=== PATIENT | female | born 1950 | race Caucasian/White ===

== ENCOUNTER 2018-12-30 18:14 | Inpatient (IN) ==
--- NOTE | 2018-12-30 18:38 | Emergency Department Note ---
Altered Mental Status HPI - General Chief Complaint: Altered Mental Status Stated Complaint: Altered loc Time Seen by Provider: 12/30/18 18:32 Source: EMS Mode of arrival: EMS - History of Present Illness HPI Narrative: This pleasant 68-year-old female became poorly responsive for about an hour and a half today where she was not talking and seem to be sleeping but did not awaken with pinching, raised voice, raising her head, etc. This is quite unusual for her according to herself and the family. She had another episode yesterday of uncertain duration. She was sent to [facility] yesterday where she was there for 6 hours and was told she had fluid retention and CO2 retention. Was given an increased dose of diuretic of furosemide from 10-40 mg. She took it twice today with no particular changes. Blood pressure also described as being low but is not on any blood pressure medication. Patient currently is at [facility] for rehabilitation. She previously been seen at [facility] and diagnosed with fluid overload a nd CO2 retention. She was discharged with her oxygen at 3 L/min but was able to be decreased from 3 L/min at home down to even 1 or 1-1/2 L/min. Patient reports having hydrocodone available for when her pains are severe but she has not taken any in the last couple of days. REVIEW OF SYSTEMS: No fevers, chills, sweats. Denies chest pain. No cough. Has chronic shortness of breath. Some new wheezing in the last 1 week. No nausea or vomiting. Has had some new rashes that seem to be increasing and going up her legs and upper arms. Had some on the chest and abdomen earlier today. No anxiety. Has had some bouts of depression but not chronically or diagnosed previously. Is always thirsty, has been for a long time. Takes chronic prednisone, 40 mg (was 60 mg); has had [facility]. - Related Data Home Medications Medication Instructions Recorded Confirmed duloxetine 60 mg capsule,delayed 60 mg PO QDAY 12/18/16 03/03/18 release gabapentin 300 mg capsule 300 mg PO QHS cap 12/18/16 03/03/18 zolpidem 10 mg tablet 10 mg PO QHS PRN tab 12/18/16 03/03/18 Allergies Allergy/AdvReac Type Severity Reaction Status Date / Time codeine Allergy Severe Unknown Verified 12/30/18 18:15 tramadol [From Ultram] Allergy Severe Unknown Verified 12/30/18 18:15 Past Medical History - Past Medical History Medical history: Denies: cancer, COPD, DM, myocardial infarction, renal disease - Social History smoking status: Never smoker Alcohol use: Reports: Rarely (Holidays) Drug use: Reports: none. Denies: marijuana Physical Exam Limitations: no limitations General appearance: alert (After spoken to. Keeps her eyes closed quite a bit of the time.), in no apparent distress Head: atraumatic, normocephalic Eye: Present: EOMI Neck: Present: trachea midline. Absent: lymphadenopathy, thyromegaly Chest: Present: symmetric chest wall rise Respiratory: Present: normal lung sounds bilaterally, rales/crackles (Possible occasional mild crackles in both bases.). Absent: respiratory distress, wheezes, stridor, accessory muscle use, prolonged expiratory phase Abdominal: Present: soft. Absent: distention, tenderness, guarding, rebound, rigidity, organomegaly, mass Extremities: Present: pedal edema (Both lower extremities and feet are covered with C[place] wraps.), other (Rather dark purplish toes compatible with her ray nods history and familiar to her family members.). Absent: pretibial edema, calf ten derness Neurological: Present: alert, oriented X3 Psychiatric: Present: normal affect, normal mood Skin: Present: dry, other (Some eczematous skin scaly dryness with excoriations on the lower legs that run across them.) Description: Present: macular. Absent: tenderness, papular, blisters, petechial , purpuric, crusting, discharge, fluctuant, indurated Course Vital Signs Temperature 97.7 F 12/30/18 18:15 Pulse Rate 85 12/30/18 18:15 Respiratory Rate 20 12/30/18 18:15 Blood Pressure 115/83 12/30/18 18:15 Pulse Oximetry (%) 93 12/30/18 18:15 Temperature 97.7 F 12/30/18 18:15 Pulse Rate 85 12/30/18 18:15 Respiratory Rate 20 12/30/18 18:15 Blood Pressure 115/83 12/30/18 18:15 Pulse Oximetry (%) 93 12/30/18 18:15 Altered Mental Status - [facility] Narrative Medical decision making narrative: 6:39 PM - large lady with history of CO2 retention and fluid retention/CHF coming with altered level of consciousness or unarousability for a significant period of time today and repeat yesterday. We will do ABG and multiple labs. See labs with multiple abnormalities including an ABG with elevated pH at 7.5 to, elevated base excess of 9.7 and bicarbonate 33.5. PCO2 was normal at 41 with PO2 at 67. She had interesting mild elevation of her liver function test at 71 for the ALT. Yesterday it was slightly worse for both liver enzymes. Bilirubin is mildly elevated at 2.2. White count is mildly elevated at 15 and yesterday was 17. She has a rather severe microcytosis and mild anemia. Creatinine is still elevated at 1.6 similar to yesterday but this is new compared to a more remote 1 of 0.8 in early 2018. Her BNP was markedly elevated at close to 13,000, yesterday was 14,000. 9:15 PM - I spoke with Dr. Alonzo, hospitalist, and went over her multiple concerns and issues and diagnoses, abnormal labs, altered level of consciousness for a prolonged period today, etc. with conclusion for her to be kept in the hospital for monitoring, observation, repeat labs and follow-up to try to come to a better understanding and/or conclusion as to the underlying causes of her altered level of consciousness today. Dr. Alonzo kindly accepts this admission. However, will be adding a CT of the head, urine drug screen, alcohol blood level, ammonia level, and venous lactate to her workup. Records of a heart cath performed earlier this year, i.e., about 6 weeks ago at [facility] will be requested. Also a previous echocardiogram report from August done in [place]. Consider high likelihood of right heart failure with probable major pulmonary hypertension per discussion with Dr. Alonzo. - Medical Records Medical records reviewed: Yes I reviewed the patient's medical records. - Lab Data Lab results reviewed: Yes I reviewed the patient's lab results. Result diagrams: 12/30/18 18:57 12/30/18 18:57 Lab Results 12/30/18 12/30/18 12/30/18 Range/Units 18:57 18:57 18:57 WBC 15.7 H (4.5-11.0) K/mcL RBC 4.96 (4.00-5.20) M/mcL Hgb 11.3 L (12.0-15.0) g/dL Hct 37.3 (36.0-48.0) % MCV 75.3 L (80.0-100.0) fL MCH 22.7 L (26.0-34.0) pg MCHC 30.2 L (31.0-36.0) g/dL RDW 21.3 H (11.5-14.5) % Plt Count 205 (140-440) K/mcL MPV 10.7 H (7.4-10.4) fL Gran % 87.0 H (38.0-78.0) % Lymph % (Auto) 7.0 L (15.5-49.0) % Wilkin % (Auto) 6.0 (1.0-12.0) % Sodium 135 (133-145) mmol/L Potassium 4.5 (3.3-5.1) mmol/L Chloride 91 L (96-108) mmol/L Carbon Dioxide 33 H (22-30) mmol/L Anion Gap 11.0 (8-16) BUN 38 H (8-23) mg/dl Creatinine 1.6 H (0.6-1.1) mg/dl GFR Calculation 33 Glucose 91 (70-105) mg/dL Calcium 8.8 (8.6-10.4) mg/dl Magnesium 2.4 (1.6-2.5) mg/dL Total Bilirubin 2.2 H (0.0-1.0) mg/dL AST 29 (0-37) U/l ALT 71 H (0-40) U/l Alkaline Phosphatase 175 H (39-117) U/L Troponin T 0.02 (0-0.03) ng/ml NT-Pro-B Natriuret Pep (0-125) pg/ml Total Protein 6.4 (5.9-8.4) gm/dL Albumin 3.9 (3.2-5.2) gm/dL Globulin 2.5 (2.2-3.7) gm/dL Albumin/Globulin Ratio 1.6 (1.0-2.3) 12/30/18 Range/Units 18:58 WBC (4.5-11.0) K/mcL RBC (4.00-5.20) M/mcL Hgb (12.0-15.0) g/dL Hct (36.0-48.0) % MCV (80.0-100.0) fL MCH (26.0-34.0) pg MCHC (31.0-36.0) g/dL RDW (11.5-14.5) % Plt Count (140-440) K/mcL MPV (7.4-10.4) fL Gran % (38.0-78.0) % Lymph % (Auto) (15.5-49.0) % Wilkin % (Auto) (1.0-12.0) % Sodium (133-145) mmol/L Potassium (3.3-5.1) mmol/L Chloride (96-108) mmol/L Carbon Dioxide (22-30) mmol/L Anion Gap (8-16) BUN (8-23) mg/dl Creatinine (0.6-1.1) mg/dl GFR Calculation Glucose (70-105) mg/dL Calcium (8.6-10.4) mg/dl Magnesium (1.6-2.5) mg/dL Total Bilirubin (0.0-1.0) mg/dL AST (0-37) U/l ALT (0-40) U/l Alkaline Phosphatase (39-117) U/L Troponin T (0-0.03) ng/ml NT-Pro-B Natriuret Pep 27500.0 H (0-125) pg/ml Total Protein (5.9-8.4) gm/dL Albumin (3.2-5.2) gm/dL Globulin (2.2-3.7) gm/dL Albumin/Globulin Ratio (1.0-2.3) - Radiology Data Radiology results reviewed: Yes I reviewed the patient's radiology results. - EKG Data EKG results narrative: EKG evidence of left atrial enlargement. No acute findings. Old EKG had some LVH criteria. This EKG will be read by a analytics developer. Disposition Pt seen by SHOULDER JOINER/PA only: No Clinical Impression: Alkalosis, metabolic, Acquired hyperbilirubinemia, Elevated alanine aminotransferase (ALT) level Altered mental status, unspecified Qualifiers: Altered mental status type: transient alteration of awareness Qualified Code(s): R40.4 - Transient alteration of awareness Acute renal failure (ARF) Qualifiers: Acute renal failure type: unspecified Qualified Code(s): N17.9 - Acute kidney failure, unspecified Elevated WBC count Qualifiers: Leukocytosis type: unspecified Qualified Code(s): D72.829 - Elevated white blood cell count, unspecified Disposition: Xfer As Inpt ([facility]) Condition: Fair
[2018-12-30 19:43] LABS: Mean Cell Volume 75.3 fL (80.0-100.0); Mean Corpuscular HGB Conc 30.2 g/dL (31.0-36.0); Platelet Count 205 K/mcL (140-440); RBC 4.96 M/mcL (4.00-5.20); Red Cell Distribution Width 21.3 % (11.5-14.5)
[2018-12-30 20:04] LABS: ALT/SGPT 71 U/l (0-40); Albumin 3.9 gm/dL (3.2-5.2); Albumin/Globulin Ratio 1.6 (1.0-2.3); Alkaline Phosphatase 175 U/L (39-117); Blood Urea Nitrogen 38 mg/dl (8-23)
--- NOTE | 2018-12-30 21:29 | Internal Med History&Physical ---
Medical - H&P: HPI Patient information: Note initiated : 12/30/18 at 9:28 pm Service Date, if different from initiated Date: [] Patient: Lurdes Hernandes a 68 y/o F admitted on for Altered loc. Chief Complaint: [] Chief complaint: AMS History of present illness: Ms. Hernandes is a 68 year old F with a history of sleep apnea on home CPAP/morbid obesity/raynauds phenomena who was brought in from [facility] the second time in 24 hours to the ER with symptoms of increasing somnolence, deep rgy and fatigue. Patient was difficult to arouse as per staff. Over the last 24 hours patient has not been talking laying in the bed. She was evaluated At [facility] on 12/30 and was discharged after 6 hours of ER stay after workup is essentially unremarkable except for creatinine 1.6. 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 During today's visit patient was difficult to arouse.Initial workup was co nsistent with elevated white count at 15.7, microcytosis, creatinine 1.6. ABG 7.52/40 . Serum lactic acid/pneumonia/urine drug screen was ordered Hospitalist service was consulted for evaluation in light of acute kidney injury/elevated white count and acute mental status change. At the time of evaluation patient is very somnolent. Unable to provide a detailed history. Most of the history is obtained from review of medical records and from ER physician.. Patient has been at advanced living for the last month due to weakness and deconditioning. Review of systems 10 point review of system was attempted but could not be performed. 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) Elevated erythrocyte sedimentation rate (Chronic) Back pain (Chronic) Discoloration of skin of foot (Acute) Mild valvular heart disease (Chronic) Ankylosing spondylitis (Chronic) Raynaud's phenomena Restless leg syndrome (Chronic) GERD (gastroesophageal reflux disease) (Chronic) Osteoporosis (Chronic) Hypertension (Chronic) Hyperlipidemia (Chronic) Postmenopausal status (Chronic) Obstructive sleep apnea (Chronic) Surgical history: History of cholecystectomy (Chronic 1985) History of colonoscopy (Chronic 2007) History of esophagogastroduodenoscopy (EGD) (Chronic 2007) History of open reduction and internal fixation (ORIF) procedure (Chronic 2004) left foot History of rotator cuff surgery (Chronic) left in 2002, right in 2003 History of tonsillectomy (Chronic ~1955) Social history: smoking status: Never smoker alcohol intake frequency: does not drink substance use type: does not use Medical - H&P: Meds Home Medications Medication Instructions Recorded Confirmed Type duloxetine 60 mg capsule,delayed 60 mg PO QDAY 12/18/16 12/30/18 History release gabapentin 300 mg capsule 300 mg PO QHS cap 12/18/16 12/30/18 History zolpidem 10 mg tablet 10 mg PO QHS PRN tab 12/18/16 12/30/18 History Ascorbic Acid [Vitamin C] 250 mg PO ONCE 12/30/18 12/30/18 History Bumetanide 1 mg PO TID 12/30/18 12/30/18 History Cyclobenzaprine [Flexeril] 10 mg PO Q8HP PRN 12/30/18 12/30/18 History Diltiazem HCl [Diltiazem 24Hr ER] 180 mg PO QAM 12/30/18 12/30/18 History Furosemide [Lasix] 40 mg PO ONCE 12/30/18 12/30/18 History Omeprazole [PriLOSEC] 20 mg PO ONCE 12/30/18 12/30/18 History Pravastatin [Pravachol] 20 mg PO HS 12/30/18 12/30/18 History Sertraline [Zoloft] 50 mg PO HS 12/30/18 12/30/18 History predniSONE [Prednisone] 40 mg PO QAM 12/30/18 12/30/18 History Allergies Allergy/AdvReac Type Severity Reaction Status Date / Time codeine Allergy Severe Unknown Verified 12/30/18 18:15 tramadol [From Ultram] Allergy Severe Unknown Verified 12/30/18 18:15 Medical - H&P: Exam - Constitutional Vitals: Temp Pulse Resp BP Pulse Ox 97.7 F 85 20 115/83 93 12/30/18 18:15 12/30/18 18:15 12/30/18 18:15 12/30/18 18:15 12/30/18 18:15 General appearance: morbidly obese, no acute distress Exam: Very somnolent and fatigued Eye movements symmetrical Oral cavity dry No ear nose discharge Head normocephalic Neck lymphadenopathy S1-S2 regular rhythm, systolic murmur grade 2 Diminished breath sounds bases Abdomen soft Lower extremity bilateral pitting edema, compressive wraps Skin no suspicious lesion Psych confused and lethargic Neuro nonfocal moving all 4 extremities to pain stimulus Medical - H&P: Reslt - Labs CBC & Chem 7: 12/31/18 03:45 12/31/18 03:45 Labs: Short CBC 12/30/18 Range/Units 18:57 WBC 15.7 H (4.5-11.0) K/mcL Hgb 11.3 L (12.0-15.0) g/dL Hct 37.3 (36.0-48.0) % Plt Count 205 (140-440) K/mcL BMP 12/30/18 18:57 Sodium 135 Potassium 4.5 Chloride 91 L Carbon Dioxide 33 H BUN 38 H Creatinine 1.6 H Glucose 91 Calcium 8.8 Cardiac Enzymes 12/30/18 Range/Units 18:57 Troponin T 0.02 (0-0.03) ng/ml Liver Function 12/30/18 Range/Units 18:57 Total Bilirubin 2.2 H (0.0-1.0) mg/dL AST 29 (0-37) U/l ALT 71 H (0-40) U/l Alkaline Phosphatase 175 H (39-117) U/L Albumin 3.9 (3.2-5.2) gm/dL Medical - H&P: A/P (1) Altered mental status, unspecified Current visit: Yes Status: Acute * Acute change in mental status-rule out polypharmacy as the patient has been on cyclobenzaprine, duloxetine, gabapentin, sertraline, zolpidem. Rule out infectious etiology, check blood and urine cultures. Consider CT head. ABG no evidence of hypercapnia or hypoxia, ammonia normal. Normal biochemical profile including sodium and blood glucose. Admit to telemetry inpatient for continued workup * Acute renal failure-continue monitoring, avoid nephrotoxic medications * Elevated bilirubin-possible secondary to elevated right heart pressure/congestive hepatopathy. Hepatic ultrasound * Anasarca-continue gentle diuresis. Echocardiogram to evaluate right heart pressure * Lower extremity lymphedema/ulcers-wound care * History of sleep apnea continue CPAP * Anxiety disorder-restart medications at lower dose * Hyperlipidemia continue statin * GERD continue PPI * Neuropathy continue gabapentin * History of SVT status post ablation, currently in A. fib on diltiazem * Severe deconditioning continue rehab support- * DVT prophylaxis continue heparin * Full code Plan * Admit as inpatient, I anticipate a minimum of 2 midnight stay for evaluation of above * AMS workup * Monitor renal function * Aggressive rehab support/nutrition supplements * Home CPAP
[2018-12-30] MEDS ORDERED: ONDANSETRON 4 MG/2 ML VIAL IV PRN (22:40)
[2018-12-30] MEDS ORDERED: MAGNESIUM SULFATE 2 GM/50 ML BAG IV PRN (22:40)
[2018-12-30] MEDS ORDERED: ACETAMINOPHEN 325 MG TABLET PO PRN (22:40)
[2018-12-30] MEDS ORDERED: POTASSIUM CHLORIDE 20 MEQ PACKET PO PRN (22:40)
[2018-12-30] MEDS ORDERED: IPRATROPIUM/ALBUTEROL 3 ML AMPUL.NEB NEB PRN (22:40)
[2018-12-30] MEDS: 0.9 % SODIUM CHLORIDE 10 ML SYRINGE IV SCH (23:42)
[2018-12-31] MEDS ORDERED: THIAMINE 100 MG/ML VIAL ONE (00:10)
[2018-12-31 00:11] LABS: Ferritin 171.7 ng/ml (30-400)
[2018-12-31] MEDS ORDERED: THIAMINE 100 MG in 0.9 % SODIUM CHLORIDE 50 ML IV ONE (00:30)
[2018-12-31 05:20] LABS: Appearance,Urine CLEAR; Bacteria,Urine 0 /hpf (0); Bilirubin,Urine NEG (NEG); Color,Urine YELLOW; Glucose,Urine (UA) NEGATIVE (NEG); Leukocyte Esterase,Urine NEG /uL (NEG); Mucus,Urine FEW /hpf (0); Protein,Urine 30 mg/dL (NEG); Specific Gravity,Urine 1.013 (1.000-1.035); Urine Blood NEG mg/dL (<0.03); Urine Hyaline Cast 5 /lpf (0-2); Urine RBC 1 /hpf (0-1); Urine Squamous Epithelial Cell < 1 /hpf (0-4); Urine WBC 7 /hpf (0-4)
[2018-12-31 05:23] LABS: Amphetamine Screen,Urine NONE DETECTED (NONDETECTED); Benzodiazepines Screen,Urine NONE DETECTED (NONDETECTED); Cocaine Screen,Urine NONE DETECTED (NONDETECTED); Opiate Screen,Urine NONE DETECTED (NONDETECTED); Oxycodone, Urine Screen NONE DETECTED (NONDETECTED)
[2018-12-31 05:44] LABS: Mean Cell Volume 75.8 fL (80.0-100.0); Mean Corpuscular HGB Conc 30.6 g/dL (31.0-36.0); Platelet Count 186 K/mcL (140-440); RBC 4.66 M/mcL (4.00-5.20); Red Cell Distribution Width 21.6 % (11.5-14.5)
[2018-12-31 06:42] LABS: ALT/SGPT 61 U/l (0-40); Albumin 3.4 gm/dL (3.2-5.2); Albumin/Globulin Ratio 1.5 (1.0-2.3); Alkaline Phosphatase 155 U/L (39-117); Bilirubin,Direct 1.4 mg/dL (0.0-0.3); Blood Urea Nitrogen 39 mg/dl (8-23); Gamma Glutamyl Transpeptidase 221 U/L (5-36); Uric Acid 9.6 mg/dL (2.5-8.0)
[2018-12-31 07:14] LABS: Anisocytosis 2+ (NONE SEEN); Hypochromasia 1+ (NONE SEEN); Lymphocytes % 14 % (15-49); Monocytes % (Manual) 7 % (1-12); Platelet Estimate NORMAL (NORMAL); RBC Morphology ABNORMAL (NORMAL); Segmented Neutrophils % 78 % (38-78)
[2018-12-31] MEDS: 0.9 % SODIUM CHLORIDE 10 ML SYRINGE IV SCH ×6 (07:30→21:30)
--- NOTE | 2018-12-31 08:31 | XRay Report ---
HISTORY: Congestive heart failure, hypoxia and decreased level of consciousness FINDINGS: The heart is moderately enlarged. There is a chronic stable finding. Pulmonary vessels are mildly engorged. There is no pulmonary edema, pleural effusion or pulmonary infiltrate. The atelectasis and left-sided pleural effusion seen on 09/17/18 have resolved. The cardiomegaly remains stable. IMPRESSION: Stable cardiomegaly with borderline congestive heart failure Interpreted and Authenticated by: Fran Huddleston 12/31/18
[2018-12-31] MEDS: FUROSEMIDE 40 MG/4 ML VIAL IV SCH ×2 (08:40→16:33)
[2018-12-31] MEDS ORDERED: THIAMINE 100 MG TABLET PO SCH (09:00)
[2018-12-31] MEDS: MULTIVIT,THER IRON,CA,FA & MIN 1 TABLET PO SCH (09:11)
[2018-12-31] MEDS: HEPARIN 5,000 UNIT/ML VIAL SQ SCH ×2 (09:11→21:12)
[2018-12-31] MEDS: DOCUSATE SODIUM 100 MG CAPSULE PO SCH ×2 (09:11→21:13)
--- NOTE | 2018-12-31 09:48 | Internal Med Progress Note ---
Medical - PN: Subj Patient information: Note initiated : 12/31/18 at 9:46 am Service Date, if different from initiated Date: [] Patient: Lurdes Hernandes a 68 y/o F admitted on 12/30/18 for Altered loc. Chief Complaint: [] Interval history: Ms. Hernandes is a 68 year old F with a history of sleep apnea on home CPAP/morbid obesity/raynauds phenomena who was brought in from [facility] the second time in 24 hours to the ER with symptoms of increasing somnolence, lethargy and fatigue. Patient was difficult to arouse as per staff. Over the last 24 hours patient has not been talking laying in the bed. She was evaluated At [facility] on 12/30 and was discharged after 6 hours of ER stay after workup is essentially unremarkable except for creatinine 1.6. 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 During today's visit patient was difficult to arouse.Initial workup was consistent with elevated white count at 15.7, microcytosis, creatinine 1.6. ABG 7.52/41/67. Serum lactic acid/pneumonia/urine drug screen was ordered Hospitalist service was consulted for evaluation in light of acute kidney injury/elevated white count and acute mental status change. At the time of evaluation patient is very somnolent. Unable to provide a detailed history. Most of the history is obtained from review of medical records and from ER physician.. Patient has been at advanced living for the last month due to weakness and deconditioning. 12/31-patient doing a lot better this morning, sitting on chair. Did ambulate 8- 10 feet. On 2 L oxygen. Was able to provide a substantial history this morning. Denies chest pain, no telemetry events other than A. fib. Denies recent fever chills. Lower extremity compressive wraps - Constitutional Vitals: Vital Signs Temp Pulse Resp BP Pulse Ox 98.0 F 85 16 98/76 97 12/31/18 07:18 12/30/18 22:23 12/31/18 07:18 12/31/18 07:18 12/31/18 07:18 Period Temp Pulse Resp BP Sys/[place] Pulse Ox Last 24 Hr 97.7 F-98.5 F 85-85 16-22 98-119/56-83 93-100 Intake and Output 12/30/18 12/31/18 12/31/18 21:59 05:59 13:59 Intake Total 175 460 Output Total 126 0 Balance 49 460 Weight 254 lb 231 lb 8 oz Intake & Output: Intake & Output 12/30/18 12/31/18 12/31/18 21:59 05:59 13:59 Intake Total 175 460 Output Total 126 0 Balance 49 460 Weight 254 lb 231 lb 8 oz Intake: Oral 175 460 Output: Void Amount 125 0 # of times incontinent of urine 1 Other: Meal Breakfast Percent of Meal Consumed 100% Feeding Ability Independent # Voids 1 General appearance: no acute distress Exam: Lower extremity bilateral lymphedema/compressive wrap Alert oriented Nonlabored breathing Ejection systolic murmur grade 2 A. fib on telemetry Medical - PN: Obj Da - Labs CBC & Chem 7: 12/31/18 03:45 12/31/18 03:45 Labs: Abnormal Lab Results 12/31/18 12/31/18 12/31/18 04:30 03:45 03:45 WBC 15.6 H Hgb 10.8 L Hct 35.3 L MCV 75.8 L MCH 23.2 L MCHC 30.6 L RDW 21.6 H MPV 10.5 H Gran % Lymph % (Auto) Lymphocytes % 14 L Nucleated RBCs 1 H Polychromasia Occ A Hypochromasia 1+ A Anisocytosis 2+ A Microcytosis 1+ A VBG Lactic Acid Chloride 91 L Carbon Dioxide BUN 39 H Creatinine 1.6 H Uric Acid 9.6 H Calcium 8.3 L Total Bilirubin 2.4 H Direct Bilirubin 1.4 H GGT 221 H ALT 61 H Alkaline Phosphatase 155 H Lactate Dehydrogenase 713 H C-Reactive Protein NT-Pro-B Natriuret Pep Total Protein 5.6 L Urine Protein 30 A Urine Urobilinogen 4.0 A Urine WBC 7 H Hyaline Casts 5 H 12/30/18 12/30/18 12/30/18 22:55 21:48 18:58 WBC Hgb Hct MCV MCH MCHC RDW MPV Gran % Lymph % (Auto) Lymphocytes % Nucleated RBCs Polychromasia Hypochromasia Anisocytosis Microcytosis VBG Lactic Acid 2.3 H Chloride Carbon Dioxide BUN Creatinine Uric Acid Calcium Total Bilirubin Direct Bilirubin GGT ALT Alkaline Phosphatase Lactate Dehydrogenase C-Reactive Protein 3.0 H NT-Pro-B Natriuret Pep 78908.0 H Total Protein Urine Protein Urine Urobilinogen Urine WBC Hyaline Casts 12/30/18 12/30/18 18:57 18:57 WBC 15.7 H Hgb 11.3 L Hct MCV 75.3 L MCH 22.7 L MCHC 30.2 L RDW 21.3 H MPV 10.7 H Gran % 87.0 H Lymph % (Auto) 7.0 L Lymphocytes % Nucleated RBCs Polychromasia Hypochromasia Anisocytosis Microcytosis VBG Lactic Acid Chloride 91 L Carbon Dioxide 33 H BUN 38 H Creatinine 1.6 H Uric Acid Calcium Total Bilirubin 2.2 H Direct Bilirubin GGT ALT 71 H Alkaline Phosphatase 175 H Lactate Dehydrogenase C-Reactive Protein NT-Pro-B Natriuret Pep Total Protein Urine Protein Urine Urobilinogen Urine WBC Hyaline Casts Meds: Medications Acetaminophen (Tylenol) 650 mg PO Q4-6HP PRN PRN Reason: PAIN/FEVER > 101 Albuterol/Ipratropium (Duoneb) 3 ml NEB Q4HP PRN PRN Reason: Shortness Of Breath Docusate Sodium (Colace) 100 mg PO BID [facility] Last Admin: 12/31/18 09:11 Dose: 100 mg Documented by: Furosemide (Lasix) 20 mg IV BIDD [facility] Last Admin: 12/31/18 08:40 Dose: 20 mg Documented by: Heparin Sodium (Porcine) (Heparin) 5,000 unit SQ Q12 [facility] Last Admin: 12/31/18 09:11 Dose: 5,000 unit Documented by: Magnesium Sulfate (Magnesium Sulfate) 2 gm in 50 mls @ 50 mls/hr IV UD PRN PRN Reason: MG = or < 1.7 Thiamine HCl 100 mg/ Sodium (Chloride) 51 mls @ 50 mls/hr IV DAILY [facility] Stop: 01/01/19 10:02 Iron Carb/Multivit/[place]/Folic Acid (Multivitamin W/Minerals) 1 tab PO DAILY [facility] Last Admin: 12/31/18 09:11 Dose: 1 tab Documented by: Nystatin (Nystatin) 500,000 units SSP BID [facility] Ondansetron HCl (Zofran) 4 mg IV Q4-6HP PRN PRN Reason: Nausea And Vomiting Potassium Chloride (Klor-Con) 40 meq PO DAILYP PRN PRN Reason: K+ < 3.5 Senna/Docusate Sodium (Senna Plus Tablet) 1 tab PO HS RADHA Sodium Chloride (Saline Flush) 10 ml IV Q8 [facility] Last Admin: 12/31/18 08:41 Dose: 10 ml Documented by: Medical - PN: A/P - Time Spent With Patient Total time spent is greater than 50% in coordination of care (as documented) at patient's floor/unit and/or counseling patient: 25 - 35 minutes (1) Altered mental status, unspecified Status: Acute Assessment and plan: * Acute change in mental status-clinically improved since admission. Likely secondary to polypharmacy including antidepressant/sedatives/opioids use. No evidence of infectious etiology, cultures negative so far. Normal ABG/ammonia/lactate/drug screen/biochemical profile including sodium and blood glucose. * Suspect acute on chronic renal failure-continue monitoring, avoid nephrotoxic medications * Elevated bilirubin-possible secondary to elevated right heart pressure/congestive hepatopathy. Hepatic ultrasound * Anasarca- gentle diuresis. Echocardiogram to evaluate right heart pressure * Lower extremity lymphedema/ulcers-wound care * History of sleep apnea continue CPAP * Anxiety disorder-restart medications at lower dose * Hyperlipidemia continue statin * GERD continue PPI * Neuropathy continue gabapentin * History of SVT status post ablation, currently in A. fib on diltiazem * Severe deconditioning continue rehab support- * DVT prophylaxis continue heparin * Full code Plan * Continue wound care per job training specialist * Continue monitoring renal function * PT OT/nutrition support * Home CPAP Current Visit: Yes Medical - PN: Qual - VTE Deep Vein Thrombosis/Pulmonary Embolism Present on Admission: No
[2018-12-31] MEDS: NYSTATIN 500,000 UNITS/5 ML ORAL.SUSP SSP SCH ×2 (10:00→21:12)
[2018-12-31] MEDS: oxyCODONE HCL 5 MG TABLET PO PRN (14:52)
[2018-12-31] MEDS: THIAMINE 100 MG in 0.9 % SODIUM CHLORIDE 50 ML IV SCH (14:53)
[2018-12-31] MEDS: SENNOSIDES/DOCUSATE SODIUM 1 TAB TABLET PO SCH (21:12)
[2018-12-31] MEDS: POTASSIUM CHLORIDE 20 MEQ TABLET PO SCH (21:13)
[2019-01-01] MEDS: oxyCODONE HCL 5 MG TABLET PO PRN (04:06)
[2019-01-01 05:19] LABS: Mean Corpuscular HGB Conc 29.7 g/dL (31.0-36.0); Platelet Count 176 K/mcL (140-440); RBC 4.59 M/mcL (4.00-5.20); Red Cell Distribution Width 21.8 % (11.5-14.5)
[2019-01-01 05:45] LABS: ALT/SGPT 57 U/l (0-40); Albumin 3.4 gm/dL (3.2-5.2); Albumin/Globulin Ratio 1.4 (1.0-2.3); Alkaline Phosphatase 163 U/L (39-117); Bilirubin,Direct 1.2 mg/dL (0.0-0.3); Blood Urea Nitrogen 35 mg/dl (8-23); Gamma Glutamyl Transpeptidase 221 U/L (5-36); Uric Acid 8.6 mg/dL (2.5-8.0)
[2019-01-01] MEDS: 0.9 % SODIUM CHLORIDE 10 ML SYRINGE IV SCH ×4 (05:49→21:42)
[2019-01-01 06:52] LABS: Anisocytosis 2+ (NONE SEEN); Hypochromasia 1+ (NONE SEEN); Lymphocytes % 26 % (15-49); Monocytes % (Manual) 2 % (1-12); Platelet Estimate NORMAL (NORMAL); RBC Morphology ABNORM (NORMAL); Segmented Neutrophils % 72 % (38-78)
[2019-01-01] MEDS: OMEPRAZOLE 20 MG CAPSULE PO SCH (08:03)
[2019-01-01] MEDS: predniSONE 20 MG TABLET PO SCH (08:04)
[2019-01-01] MEDS: DOCUSATE SODIUM 100 MG CAPSULE PO SCH ×2 (08:42→21:42)
[2019-01-01] MEDS: DILTIAZEM 180 MG CAP.XL.24H PO SCH (08:42)
[2019-01-01] MEDS: BUMETANIDE 1 MG TABLET PO SCH ×2 (08:42→18:02)
[2019-01-01] MEDS: MULTIVIT,THER IRON,CA,FA & MIN 1 TABLET PO SCH (08:42)
[2019-01-01] MEDS: HEPARIN 5,000 UNIT/ML VIAL SQ SCH ×2 (08:43→21:42)
[2019-01-01] MEDS: POTASSIUM CHLORIDE 20 MEQ TABLET PO SCH ×3 (08:43→21:42)
[2019-01-01] MEDS: DULoxetine 30 MG CAPSULE PO SCH (08:43)
[2019-01-01] MEDS: SPIRONOLACTONE 25 MG TABLET PO SCH (08:43)
[2019-01-01] MEDS: NYSTATIN 500,000 UNITS/5 ML ORAL.SUSP SSP SCH ×2 (08:44→21:43)
--- NOTE | 2019-01-01 09:00 | XRay Report ---
HISTORY: Congestive heart failure FINDINGS: The heart is moderately enlarged and has increased in size since 12/30/18. Similar size heart was seen on 09/17/18. At that time there was a left-sided pleural effusion and atelectasis in the left lung. There is mild prominence of the pulmonary vessels. No pulmonary edema is present. There is also no pneumonia, atelectasis or pleural effusion. IMPRESSION: Worsening cardiomegaly with borderline congestive heart failure Interpreted and Authenticated by: Fran Huddleston 01/01/19
[2019-01-01] MEDS: ACETAMINOPHEN 650 MG/65 ML BOTTLE IV PRN (09:50)
[2019-01-01] MEDS: THIAMINE 100 MG in 0.9 % SODIUM CHLORIDE 50 ML IV SCH (10:00)
--- NOTE | 2019-01-01 10:09 | Internal Med Progress Note ---
Medical - PN: Subj Patient information: Note initiated : 01/01/19 at 10:04 am Service Date, if different from initiated Date: [] Patient: Lurdes Hernandes a 68 y/o F admitted on 12/30/18 for Altered loc. Chief Complaint: [] Interval history: Ms. Hernandes is a 68 year old F with a history of sleep apnea on home CPAP/morbid obesity/raynauds phenomena who was brought in from [facility] the second time in 24 hours to the ER with symptoms of increasing somnolence, lethargy and fatigue. Patient was difficult to arouse as per staff. Over the last 24 hours patient has not been talking laying in the bed. She was evaluated At [facility] on 12/30 and was discharged after 6 hours of ER stay after workup is essentially unremarkable except for creatinine 1.6. 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 During today's visit patient was difficult to arouse.Initial workup was consistent with elevated white count at 15.7, microcytosis, creatinine 1.6. ABG 7.52/41/67. Serum lactic acid/pneumonia/urine drug screen was ordered Hospitalist service was consulted for evaluation in light of acute kidney injury/elevated white count and acute mental status change. At the time of evaluation patient is very somnolent. Unable to provide a detailed history. Most of the history is obtained from review of medical records and from ER physician.. Patient has been at advanced living for the last month due to weakness and deconditioning. 12/31-patient doing a lot better this morning, sitting on chair. Did ambulate 8- 10 feet. On 2 L oxygen. Was able to provide a substantial history this morning. Denies chest pain, no telemetry events other than A. fib. Denies recent fever chills. Lower extremity compressive wraps 01/01-patient doing remarkably better. Daughter at bedside. Awake alert and per daughter patient is now her normal self at baseline. No overnight events including fever chills or mental status Ainge or confusion. Was able to ambulate with assistance. Continue rehab support and possible discharge in 24 hours. Family very appreciative of care - Constitutional Vitals: Vital Signs Temp Pulse Resp BP Pulse Ox 98.0 F 85 20 95/60 96 01/01/19 04:28 02/08/19 22:23 01/01/19 04:28 01/01/19 04:28 01/01/19 04:28 Period Temp Pulse Resp BP Sys/Santana Pulse Ox Last 24 Hr 97.9 F-98.5 F 16-20 94-120/60-74 95-98 Intake and Output 12/31/18 01/01/19 01/01/19 21:59 05:59 13:59 Intake Total 411 120 Output Total 250 550 250 Balance 161 -550 -130 Weight 231 lb Intake & Output: Intake & Output 12/31/18 01/01/19 01/01/19 21:59 05:59 13:59 Intake Total 411 120 Output Total 250 550 250 Balance 161 -550 -130 Weight 231 lb Intake: IV 51 Vitamin B1 100 mg In Sodium 51 Chloride 0.9% 50 ml @ 50 mls/hr IV DAILY [facility] Rx#:[id number] Oral 360 120 Output: Void Amount 250 550 250 Other: Meal Breakfast Percent of Meal Consumed 100% Feeding Ability Independent Urine Color Light Hermila # Voids 1 300 1 General appearance: cooperative, no acute distress Exam: Alert oriented No labored breathing Nondistended abdomen No anxiety Medical - PN: Obj Da - Labs CBC & Chem 7: 01/01/19 03:55 01/01/19 03:55 Labs: Abnormal Lab Results 01/01/19 01/01/19 12/31/18 03:55 03:55 04:30 WBC 11.3 H Hgb 10.4 L Hct 34.9 L MCV 76.0 L MCH 22.6 L MCHC 29.7 L RDW 21.8 H MPV Gran % Lymph % (Auto) Lymphocytes % Nucleated RBCs 2 H RBC Morphology Abnorm A Polychromasia 1+ A Hypochromasia 1+ A Anisocytosis 2+ A Microcytosis 1+ A VBG Lactic Acid Chloride 91 L Carbon Dioxide 35 H BUN 35 H Creatinine 1.4 H Glucose 118 H Uric Acid 8.6 H Calcium 8.4 L Total Bilirubin 2.3 H Direct Bilirubin 1.2 H GGT 221 H ALT 57 H Alkaline Phosphatase 163 H Lactate Dehydrogenase 644 H C-Reactive Protein NT-Pro-B Natriuret Pep Total Protein 5.8 L Urine Protein 30 A Urine Urobilinogen 4.0 A Urine WBC 7 H Hyaline Casts 5 H 12/31/18 12/31/18 12/30/18 03:45 03:45 22:55 WBC 15.6 H Hgb 10.8 L Hct 35.3 L MCV 75.8 L MCH 23.2 L MCHC 30.6 L RDW 21.6 H MPV 10.5 H Gran % Lymph % (Auto) Lymphocytes % 14 L Nucleated RBCs 1 H RBC Morphology Polychromasia Occ A Hypochromasia 1+ A Anisocytosis 2+ A Microcytosis 1+ A VBG Lactic Acid Chloride 91 L Carbon Dioxide BUN 39 H Creatinine 1.6 H Glucose Uric Acid 9.6 H Calcium 8.3 L Total Bilirubin 2.4 H Direct Bilirubin 1.4 H GGT 221 H ALT 61 H Alkaline Phosphatase 155 H Lactate Dehydrogenase 713 H C-Reactive Protein 3.0 H NT-Pro-B Natriuret Pep Total Protein 5.6 L Urine Protein Urine Urobilinogen Urine WBC Hyaline Casts 12/30/18 12/30/18 12/30/18 21:48 18:58 18:57 WBC Hgb Hct MCV MCH MCHC RDW MPV Gran % Lymph % (Auto) Lymphocytes % Nucleated RBCs RBC Morphology Polychromasia Hypochromasia Anisocytosis Microcytosis VBG Lactic Acid 2.3 H Chloride 91 L Carbon Dioxide 33 H BUN 38 H Creatinine 1.6 H Glucose Uric Acid Calcium Total Bilirubin 2.2 H Direct Bilirubin GGT ALT 71 H Alkaline Phosphatase 175 H Lactate Dehydrogenase C-Reactive Protein NT-Pro-B Natriuret Pep 52805.0 H Total Protein Urine Protein Urine Urobilinogen Urine WBC Hyaline Casts 12/30/18 18:57 WBC 15.7 H Hgb 11.3 L Hct MCV 75.3 L MCH 22.7 L MCHC 30.2 L RDW 21.3 H MPV 10.7 H Gran % 87.0 H Lymph % (Auto) 7.0 L Lymphocytes % Nucleated RBCs RBC Morphology Polychromasia Hypochromasia Anisocytosis Microcytosis VBG Lactic Acid Chloride Carbon Dioxide BUN Creatinine Glucose Uric Acid Calcium Total Bilirubin Direct Bilirubin GGT ALT Alkaline Phosphatase Lactate Dehydrogenase C-Reactive Protein NT-Pro-B Natriuret Pep Total Protein Urine Protein Urine Urobilinogen Urine WBC Hyaline Casts Meds: Medications Acetaminophen (Tylenol) 650 mg PO Q4-6HP PRN PRN Reason: PAIN/FEVER > 101 Last Admin: 12/31/18 13:40 Dose: 650 mg Documented by: Albuterol/Ipratropium (Duoneb) 3 ml NEB Q4HP PRN PRN Reason: Shortness Of Breath Bumetanide (Bumex) 2 mg PO BIDD [facility] Last Admin: 01/01/19 08:42 Dose: 2 mg Documented by: Diltiazem HCl (Cardizem Cd) 180 mg PO DAILY [facility] Last Admin: 01/01/19 08:42 Dose: 180 mg Documented by: Docusate Sodium (Colace) 100 mg PO BID [facility] Last Admin: 01/01/19 08:42 Dose: 100 mg Documented by: Duloxetine HCl (Cymbalta) 60 mg PO DAILY [facility] Last Admin: 01/01/19 08:43 Dose: 60 mg Documented by: Heparin Sodium (Porcine) (Heparin) 5,000 unit SQ Q12 [facility] Last Admin: 01/01/19 08:43 Dose: 5,000 unit Documented by: Magnesium Sulfate (Magnesium Sulfate) 2 gm in 50 mls @ 50 mls/hr IV UD PRN PRN Reason: MG = or < 1.7 Acetaminophen (Ofirmev) 650 mg in 65 mls @ 130 mls/hr IV Q6HP PRN PRN Reason: PAIN/FEVER > 101 Iron Carb/Multivit/[place]/Folic Acid (Multivitamin W/Minerals) 1 tab PO DAILY [facility] Last Admin: 01/01/19 08:42 Dose: 1 tab Documented by: Nystatin (Nystatin) 500,000 units SSP BID [facility] Last Admin: 01/01/19 08:44 Dose: 500,000 units Documented by: Omeprazole (Prilosec) 20 mg PO ACB [facility] Last Admin: 01/01/19 08:03 Dose: 20 mg Documented by: Ondansetron HCl (Zofran) 4 mg IV Q4-6HP PRN PRN Reason: Nausea And Vomiting Oxycodone HCl (Roxicodone) 5 mg PO Q12HP PRN PRN Reason: PAIN LEVEL 3-6 Last Admin: 01/01/19 04:06 Dose: 5 mg Documented by: Potassium Chloride (Klor-Con) 40 meq PO DAILYP PRN PRN Reason: K+ < 3.5 Potassium Chloride (Kdur) 20 meq PO TID [facility] Last Admin: 01/01/19 08:43 Dose: 20 meq Documented by: [facility]) [facility] Last Admin: 01/01/19 08:04 Dose: 40 mg Documented by: Senna/Docusate Sodium (Senna Plus Tablet) 1 tab PO [facility] Last Admin: 12/31/18 21:12 Dose: 1 tab Documented by: Sodium Chloride (Saline Flush) 10 ml IV Q8 [facility] Last Admin: 01/01/19 05:49 Dose: 10 ml Documented by: Spironolactone (Aldactone) 50 mg PO DAILY [facility] Last Admin: 01/01/19 08:43 Dose: 50 mg Documented by: Medical - PN: A/P - Time Spent With Patient Total time spent is greater than 50% in coordination of care (as documented) at patient's floor/unit and/or counseling patient: 25 - 35 minutes (1) Altered mental status, unspecified Status: Acute Assessment and plan: * Acute change in mental status-clinically improved and now near baseline. Likely secondary to polypharmacy- home medication including antidepressant/sedatives/opioids use. No evidence of infectious etiology, cultures negative so far. Normal ABG/ammonia/lactate/drug screen/biochemical profile including sodium and blood glucose. Discontinued zolpidem, gabapentin, hydrocodone * Suspect acute on chronic renal failure-continue monitoring, avoid nephrotoxic medications. Creatinine now down from 1.6-1.4 * Elevated bilirubin-possible secondary to elevated right heart pressure/congestive hepatopathy. Hepatic ultrasound * Anasarca- gentle diuresis. Echocardiogram results awaited * Lower extremity lymphedema/ulcers-wound care * History of sleep apnea continue CPAP * Anxiety disorder-restart medications at lower dose * Hyperlipidemia continue statin * GERD continue PPI * Neuropathy-stable. DC gabapentin * History of SVT status post ablation, currently in A. fib on diltiazem * Severe deconditioning continue rehab support- * DVT prophylaxis continue heparin * Full code Plan * Continue wound care per credentials specialist * Continue rehab support * Continue monitoring renal function * Home CPAP * Discharge planning per case management Current Visit: Yes Medical - PN: Qual - VTE Deep Vein Thrombosis/Pulmonary Embolism Present on Admission: No
[2019-01-01] MEDS: SENNOSIDES/DOCUSATE SODIUM 1 TAB TABLET PO SCH (21:42)
[2019-01-02] MEDS: 0.9 % SODIUM CHLORIDE 10 ML SYRINGE IV SCH ×3 (05:51→22:00)
[2019-01-02 06:33] LABS: Mean Cell Volume 75.6 fL (80.0-100.0); Mean Corpuscular HGB Conc 29.6 g/dL (31.0-36.0); Platelet Count 175 K/mcL (140-440); RBC 4.69 M/mcL (4.00-5.20); Red Cell Distribution Width 21.7 % (11.5-14.5)
[2019-01-02 06:36] LABS: Anisocytosis 2+ (NONE SEEN); Hypochromasia 1+ (NONE SEEN); Lymphocytes % 5 % (15-49); Monocytes % (Manual) 6 % (1-12); Platelet Estimate NORMAL (NORMAL); RBC Morphology ABNORM (NORMAL); Segmented Neutrophils % 89 % (38-78)
[2019-01-02 07:12] LABS: ALT/SGPT 54 U/l (0-40); Albumin 3.2 gm/dL (3.2-5.2); Albumin/Globulin Ratio 1.2 (1.0-2.3); Alkaline Phosphatase 157 U/L (39-117); Bilirubin,Direct 0.9 mg/dL (0.0-0.3); Blood Urea Nitrogen 28 mg/dl (8-23); Gamma Glutamyl Transpeptidase 201 U/L (5-36); Uric Acid 7.4 mg/dL (2.5-8.0)
[2019-01-02] MEDS: OMEPRAZOLE 20 MG CAPSULE PO SCH (07:21)
[2019-01-02] MEDS: predniSONE 20 MG TABLET PO SCH (08:07)
[2019-01-02] MEDS: BUMETANIDE 1 MG TABLET PO SCH ×2 (08:07→16:44)
[2019-01-02] MEDS: HEPARIN 5,000 UNIT/ML VIAL SQ SCH ×2 (08:47→21:14)
[2019-01-02] MEDS: DOCUSATE SODIUM 100 MG CAPSULE PO SCH ×2 (08:47→21:15)
[2019-01-02] MEDS: POTASSIUM CHLORIDE 20 MEQ TABLET PO SCH ×3 (08:47→21:14)
[2019-01-02] MEDS: MULTIVIT,THER IRON,CA,FA & MIN 1 TABLET PO SCH (08:47)
[2019-01-02] MEDS: DILTIAZEM 180 MG CAP.XL.24H PO SCH (08:47)
[2019-01-02] MEDS: DULoxetine 30 MG CAPSULE PO SCH (08:47)
[2019-01-02] MEDS: SPIRONOLACTONE 25 MG TABLET PO SCH (08:47)
[2019-01-02] MEDS: NYSTATIN 500,000 UNITS/5 ML ORAL.SUSP SSP SCH ×2 (08:52→21:00)
--- NOTE | 2019-01-02 10:49 | Internal Med Progress Note ---
Medical - PN: Subj Patient information: Note initiated : 01/02/19 at 10:45 am Service Date, if different from initiated Date: [] Patient: Lurdes Hernandes a 68 y/o F admitted on 12/30/18 for Altered loc. Chief Complaint: [] Interval history: Ms. Hernandes is a 68 year old F with a history of sleep apnea on home CPAP/morbid obesity/raynauds phenomena who was brought in from [facility] the second time in 24 hours to the ER with symptoms of increasing somnolence, lethargy and fatigue. Patient was difficult to arouse as per staff. Over the last 24 hours patient has not been talking laying in the bed. She was evaluated At [facility] on 12/30 and was discharged after 6 hours of ER stay after workup is essentially unremarkable except for creatinine 1.6. 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 During today's visit patient was difficult to arouse.Initial workup was consistent with elevated white count at 15.7, microcytosis, creatinine 1.6. ABG 7.52/41/67. Serum lactic acid/pneumonia/urine drug screen was ordered Hospitalist service was consulted for evaluation in light of acute kidney injury/elevated white count and acute mental status change. At the time of evaluation patient is very somnolent. Unable to provide a detailed history. Most of the history is obtained from review of medical records and from ER physician.. Patient has been at advanced living for the last month due to weakness and deconditioning. 12/31-patient doing a lot better this morning, sitting on chair. Did ambulate 8- 10 feet. On 2 L oxygen. Was able to provide a substantial history this morning. Denies chest pain, no telemetry events other than A. fib. Denies recent fever chills. Lower extremity compressive wraps 01/01-patient doing remarkably better. Daughter at bedside. Awake alert and per daughter patient is now her normal self at baseline. No overnight events including fever chills or mental status Ainge or confusion. Was able to ambulate with assistance. Continue rehab support and possible discharge in 24 hours. Family very appreciative of care 01/02-patient doing better. No overnight events. No concerns per staff. Wound care ongoing. White count 12.4. In lot of normal ESR at 6/CRP 3 prednisone dose lowered to 10 mg and will target eventual 2.5 baseline dose. Prednisone 40mg was recently started at [facility] less than a week ago. Creatinine improved to 1.2. Continue fluid restriction to 1500 cc a day. Echocardiogram awaited - Constitutional Vitals: Vital Signs Temp Pulse Resp BP Pulse Ox 97.8 F 85 16 141/82 95 01/02/19 07:20 12/30/18 22:23 01/02/19 07:20 01/02/19 07:20 01/02/19 07:20 Period Temp Pulse Resp BP Sys/Santana Pulse Ox Last 24 Hr 97.8 F-98.9 F 16-18 99-141/63-82 94-98 Intake and Output 01/01/19 01/02/19 01/02/19 21:59 05:59 13:59 Intake Total 420 1120 580 Output Total 725 800 650 Balance -305 320 -70 Weight 232 lb 6.4 oz Intake & Output: Intake & Output 01/01/19 01/02/19 01/02/19 21:59 05:59 13:59 Intake Total 420 1120 580 Output Total 725 800 650 Balance -305 320 -70 Weight 232 lb 6.4 oz Intake: Oral 420 1120 580 Output: Void Amount 725 800 650 Other: Meal Dinner Breakfast Percent of Meal Consumed 100% 75% Feeding Ability Independent Independent Urine Appearance Clear Clear Urine Color Dark Yellow Dark Yellow Urine Odor Normal Normal # Voids 1 # Bowel Movements 0 General appearance: no acute distress Exam: Alert oriented and in good spirits Daughter at bedside Nonlabored breathing nondistended abdomen Lymphedema slightly more than previous day Lower extremity purple toes consistent with raynauds Medical - PN: Obj Da - Labs CBC & Chem 7: 01/02/19 03:52 01/02/19 03:52 Labs: Abnormal Lab Results 01/02/19 01/02/19 01/01/19 03:52 03:52 03:55 WBC 12.4 H Hgb 10.5 L Hct 35.4 L MCV 75.6 L MCH 22.3 L MCHC 29.6 L RDW 21.7 H MPV 11.0 H Gran % Lymph % (Auto) Seg Neutrophils % 89 H Lymphocytes % 5 L Nucleated RBCs 2 H RBC Morphology Abnorm A Polychromasia 1+ A Hypochromasia 1+ A Anisocytosis 2+ A Microcytosis 1+ A VBG Lactic Acid Chloride 92 L 91 L Carbon Dioxide 35 H BUN 28 H 35 H Creatinine 1.2 H 1.4 H Glucose 138 H 118 H Uric Acid 8.6 H Calcium 8.2 L 8.4 L Total Bilirubin 1.9 H 2.3 H Direct Bilirubin 0.9 H 1.2 H GGT 201 H 221 H ALT 54 H 57 H Alkaline Phosphatase 157 H 163 H Lactate Dehydrogenase 828 H 644 H C-Reactive Protein NT-Pro-B Natriuret Pep Total Protein 5.8 L Urine Protein Urine Urobilinogen Urine WBC Hyaline Casts 01/01/19 12/31/18 12/31/18 03:55 04:30 03:45 WBC 11.3 H Hgb 10.4 L Hct 34.9 L MCV 76.0 L MCH 22.6 L MCHC 29.7 L RDW 21.8 H MPV Gran % Lymph % (Auto) Seg Neutrophils % Lymphocytes % Nucleated RBCs 2 H RBC Morphology Abnorm A Polychromasia 1+ A Hypochromasia 1+ A Anisocytosis 2+ A Microcytosis 1+ A VBG Lactic Acid Chloride 91 L Carbon Dioxide BUN 39 H Creatinine 1.6 H Glucose Uric Acid 9.6 H Calcium 8.3 L Total Bilirubin 2.4 H Direct Bilirubin 1.4 H GGT 221 H ALT 61 H Alkaline Phosphatase 155 H Lactate Dehydrogenase 713 H C-Reactive Protein NT-Pro-B Natriuret Pep Total Protein 5.6 L Urine Protein 30 A Urine Urobilinogen 4.0 A Urine WBC 7 H Hyaline Casts 5 H 12/31/18 12/30/18 12/30/18 03:45 22:55 21:48 WBC 15.6 H Hgb 10.8 L Hct 35.3 L MCV 75.8 L MCH 23.2 L MCHC 30.6 L RDW 21.6 H MPV 10.5 H Gran % Lymph % (Auto) Seg Neutrophils % Lymphocytes % 14 L Nucleated RBCs 1 H RBC Morphology Polychromasia Occ A Hypochromasia 1+ A Anisocytosis 2+ A Microcytosis 1+ A VBG Lactic Acid 2.3 H Chloride Carbon Dioxide BUN Creatinine Glucose Uric Acid Calcium Total Bilirubin Direct Bilirubin GGT ALT Alkaline Phosphatase Lactate Dehydrogenase C-Reactive Protein 3.0 H NT-Pro-B Natriuret Pep Total Protein Urine Protein Urine Urobilinogen Urine WBC Hyaline Casts 12/30/18 12/30/18 12/30/18 18:58 18:57 18:57 WBC 15.7 H Hgb 11.3 L Hct MCV 75.3 L MCH 22.7 L MCHC 30.2 L RDW 21.3 H MPV 10.7 H Gran % 87.0 H Lymph % (Auto) 7.0 L Seg Neutrophils % Lymphocytes % Nucleated RBCs RBC Morphology Polychromasia Hypochromasia Anisocytosis Microcytosis VBG Lactic Acid Chloride 91 L Carbon Dioxide 33 H BUN 38 H Creatinine 1.6 H Glucose Uric Acid Calcium Total Bilirubin 2.2 H Direct Bilirubin GGT ALT 71 H Alkaline Phosphatase 175 H Lactate Dehydrogenase C-Reactive Protein NT-Pro-B Natriuret Pep 89482.0 H Total Protein Urine Protein Urine Urobilinogen Urine WBC Hyaline Casts Meds: Medications Acetaminophen (Tylenol) 650 mg PO Q4-6HP PRN PRN Reason: PAIN/FEVER > 101 Last Admin: 12/31/18 13:40 Dose: 650 mg Documented by: Albuterol/Ipratropium (Duoneb) 3 ml NEB Q4HP PRN PRN Reason: Shortness Of Breath Bumetanide (Bumex) 2 mg PO BIDD [facility] Last Admin: 01/02/19 08:07 Dose: 2 mg Documented by: Diltiazem HCl (Cardizem Cd) 180 mg PO DAILY [facility] Last Admin: 01/02/19 08:47 Dose: 180 mg Documented by: Docusate Sodium (Colace) 100 mg PO BID [facility] Last Admin: 01/02/19 08:47 Dose: 100 mg Documented by: Duloxetine HCl (Cymbalta) 60 mg PO DAILY [facility] Last Admin: 01/02/19 08:47 Dose: 60 mg Documented by: Heparin Sodium (Porcine) (Heparin) 5,000 unit SQ Q12 [facility] Last Admin: 01/02/19 08:47 Dose: 5,000 unit Documented by: Magnesium Sulfate (Magnesium Sulfate) 2 gm in 50 mls @ 50 mls/hr IV UD PRN PRN Reason: MG = or < 1.7 Acetaminophen (Ofirmev) 650 mg in 65 mls @ 130 mls/hr IV Q6HP PRN PRN Reason: PAIN/FEVER > 101 Last Infusion: 01/01/19 10:39 Dose: Infused Documented by: Iron Carb/Multivit/[place]/Folic Acid (Multivitamin W/Minerals) 1 tab PO DAILY [facility] Last Admin: 01/02/19 08:47 Dose: 1 tab Documented by: Nystatin (Nystatin) 500,000 units SSP BID [facility] Last Admin: 01/02/19 08:52 Dose: Not Given Documented by: Omeprazole (Prilosec) 20 mg PO ACB [facility] Last Admin: 01/02/19 07:21 Dose: 20 mg Documented by: Ondansetron HCl (Zofran) 4 mg IV Q4-6HP PRN PRN Reason: Nausea And Vomiting Oxycodone HCl (Roxicodone) 5 mg PO Q12HP PRN PRN Reason: PAIN LEVEL 3-6 Last Admin: 01/01/19 04:06 Dose: 5 mg Documented by: Potassium Chloride (Klor-Con) 40 meq PO DAILYP PRN PRN Reason: K+ < 3.5 Potassium Chloride (Kdur) 20 meq PO TID [facility] Last Admin: 01/02/19 08:47 Dose: 20 meq Documented by: Prednisone (Prednisone) 10 mg PO [facility] Senna/Docusate Sodium (Senna Plus Tablet) 1 tab PO HS [facility] Last Admin: 01/01/19 21:42 Dose: 1 tab Documented by: Sodium Chloride (Saline Flush) 10 ml IV Q8 [facility] Last Admin: 01/02/19 05:51 Dose: 10 ml Documented by: Spironolactone (Aldactone) 50 mg PO DAILY [facility] Last Admin: 01/02/19 08:47 Dose: 50 mg Documented by: Medical - PN: A/P - Time Spent With Patient Total time spent is greater than 50% in coordination of care (as documented) at patient's floor/unit and/or counseling patient: 25 - 35 minutes (1) Altered mental status, unspecified Status: Acute Assessment and plan: * Acute change in mental status-clinically improved and now near baseline. Likely secondary to polypharmacy- home medication including antidepressant/sedatives/opioids use. No evidence of infectious etiology, cultures negative so far. Normal ABG/ammonia/lactate/drug screen/biochemical profile including sodium and blood glucose. Discontinued zolpidem, gabapentin, hydrocodone * Congestive heart failure-on chest imaging. Continue diuresis. On home dose Bumex * Suspect acute on chronic renal failure-continue monitoring, avoid nephrotoxic medications. Creatinine now down from 1.6-1.4 * History of chronic tissue disorder currently on prednisone 40. ESR 6, CRP 3, very unlikely a flare. Lower prednisone dose to 10 and subsequent taper to 2.5 * Elevated bilirubin-possible secondary to elevated right heart pressure/congestive hepatopathy. Await echocardiogram * Anasarca-clinically improving with diuresis. * Lower extremity ulcers-continue wound care * History of sleep apnea continue CPAP * Anxiety disorder-on Cymbalta stable * Hyperlipidemia continue statin * GERD continue PPI * Neuropathy-stable. DC gabapentin * History of SVT status post ablation, currently in A. fib on diltiazem * Severe deconditioning continue rehab support- * DVT prophylaxis continue heparin * Full code Plan * Lower dose of prednisone to 10 * Await echocardiogram * Home CPAP * Continue wound care/PT OT * Discharge planning per case management Current Visit: Yes Medical - PN: Qual - VTE Deep Vein Thrombosis/Pulmonary Embolism Present on Admission: No
--- NOTE | 2019-01-02 16:01 | General Surgery Consult Note ---
History of Present Illness Patient information: Note initiated : 01/02/19 at 3:56 pm Service Date, if different from initiated Date: [] Patient: Lurdes Hernandes 68 y/o F admitted on 12/30/18 for Altered loc. Chief Complaint: [] Consult date: 01/02/19 Requesting physician: Natanael Steel (Wound Care. SKin bruises) History of present illness: I saw this 68-year-old female in ICU 120 / B, along with Bre RN inpatient wound care. This is a patient with multiple medical problems. She is a resident of [facility], in [facility]. She was emergently admitted for the second time in less than 2 weeks with altered mental status and somnolence. She has a background of multiple comorbid medical problems. These are being managed appropriately. She has deconditioning and is on multiple medications ( Polypharmacy ) Wound care consult was called for baseline evaluation and management of lymphedema of both lower extremities and skin bruising on the dorsal aspect of both feet. There is no evidence of any skin ulceration, drainage, crepitation or purulence. Patient is pitting lymphedema from the knees down to the toes. Medications and Allergies Home Medications Medication Instructions Recorded Confirmed Type duloxetine 60 mg capsule,delayed 60 mg PO DAILY 12/18/16 12/31/18 History release Bumetanide 2 mg PO TID 12/30/18 12/31/18 History Diltiazem HCl [Diltiazem 24Hr ER] 180 mg PO DAILY 12/30/18 12/31/18 History Omeprazole [Prilosec] 20 mg PO ACB 12/30/18 12/31/18 History Acetaminophen [Tylenol] 1,000 mg PO Q8HP PRN 12/31/18 12/31/18 History Calcium Carbonate [Tums] 200 mg PO TIDP PRN 12/31/18 12/31/18 History Polyethylene Glycol 3350 [Miralax] 17 gm PO DAILYP PRN 12/31/18 12/31/18 History Potassium Chloride [Klor-Con M20] 20 meq PO TID 12/31/18 12/31/18 History Spironolactone 50 mg PO DAILY 12/31/18 12/31/18 History oxyCODONE HCL [Roxicodone] 5 mg PO Q12HP PRN #14 tab 01/02/19 Rx predniSONE [Prednisone] 10 mg PO QAC #5 tab 01/02/19 Rx Allergies Allergy/AdvReac Type Severity Reaction Status Date / Time codeine AdvReac Mild Nausea/Vomi Verified 12/31/18 12:14 ting Exam Temp Pulse Resp BP Pulse Ox 99.6 F H 85 16 121/68 96 01/02/19 11:34 12/30/18 22:23 01/02/19 11:34 01/02/19 11:34 01/02/19 11:34 - General physical appearance well developed, well nourished, obese, other (I saw her along with the nursing staff in ICU and her family member.) - Eyes PERRL, normal ocular movement - ENT normal pinna, normal nares, normal mucosa, no congestion - Head Head exam IM: Present: atraumatic, normal inspection, normocephalic - Neck no masses, trachea midline, no venous distension - Cardiovascular Cardiovascular exam IM: Present: normal rate and rhythm - Respiratory absent breath sounds: bilateral (Diminished but breath sounds lung bases) - Abdomen Abdomen: Present: soft, non tender, bowel sounds - Integumentary Present: other (Dry skin. Petichae and ecchymosis of both legs, mostly resolved. Bilateral lower extremity lymphedema. 2 areas of ecchymosis on the dorsal aspect of her distal mid foot bilateral. No evidence of sacral skin breakdown) - Neurologic Present: normal coordination, other (Moves all extremities. No lateralizing signs) - Musculoskeletal Present: other (Bed confined.) - Psychiatric Present: oriented to time, oriented to person, speech is normal Results - Labs 01/02/19 03:52 01/02/19 03:52 Abnormal lab results 01/02/19 01/02/19 Range/Units 03:52 03:52 WBC 12.4 H (4.5-11.0) K/mcL Hgb 10.5 L (12.0-15.0) g/dL Hct 35.4 L (36.0-48.0) % MCV 75.6 L (80.0-100.0) fL MCH 22.3 L (26.0-34.0) pg MCHC 29.6 L (31.0-36.0) g/dL RDW 21.7 H (11.5-14.5) % MPV 11.0 H (7.4-10.4) fL Seg Neutrophils % 89 H (38-78) % Lymphocytes % 5 L (15-49) % Nucleated RBCs 2 H (0-0) % RBC Morphology Abnorm A (NORMAL) Polychromasia 1+ A (NONE SEEN) Hypochromasia 1+ A (NONE SEEN) Anisocytosis 2+ A (NONE SEEN) Microcytosis 1+ A (NONE SEEN) Chloride 92 L (96-108) mmol/L BUN 28 H (8-23) mg/dl Creatinine 1.2 H (0.6-1.1) mg/dl Glucose 138 H (70-105) mg/dL Calcium 8.2 L (8.6-10.4) mg/dl Total Bilirubin 1.9 H (0.0-1.0) mg/dL Direct Bilirubin 0.9 H (0.0-0.3) mg/dL GGT 201 H (5-36) U/L ALT 54 H (0-40) U/l Alkaline Phosphatase 157 H (39-117) U/L Lactate Dehydrogenase 828 H (94-250) U/L Diabetes panel 01/02/19 Range/Units 03:52 Sodium 135 (133-145) mmol/L Potassium 4.6 (3.3-5.1) mmol/L Chloride 92 L (96-108) mmol/L Carbon Dioxide 28 (22-30) mmol/L BUN 28 H (8-23) mg/dl Creatinine 1.2 H (0.6-1.1) mg/dl Glucose 138 H (70-105) mg/dL Calcium 8.2 L (8.6-10.4) mg/dl AST 35 (0-37) U/l ALT 54 H (0-40) U/l Alkaline Phosphatase 157 H (39-117) U/L Total Protein 5.9 (5.9-8.4) gm/dL Albumin 3.2 (3.2-5.2) gm/dL Triglycerides 119 (<150) mg/dl Calcium panel 01/02/19 Range/Units 03:52 Calcium 8.2 L (8.6-10.4) mg/dl Phosphorus 3.5 (2.7-4.5) mg/dL Albumin 3.2 (3.2-5.2) gm/dL Pituitary panel 01/02/19 Range/Units 03:52 Sodium 135 (133-145) mmol/L Potassium 4.6 (3.3-5.1) mmol/L Chloride 92 L (96-108) mmol/L Carbon Dioxide 28 (22-30) mmol/L BUN 28 H (8-23) mg/dl Creatinine 1.2 H (0.6-1.1) mg/dl Glucose 138 H (70-105) mg/dL Calcium 8.2 L (8.6-10.4) mg/dl Adrenal panel 01/02/19 Range/Units 03:52 Sodium 135 (133-145) mmol/L Potassium 4.6 (3.3-5.1) mmol/L Chloride 92 L (96-108) mmol/L Carbon Dioxide 28 (22-30) mmol/L BUN 28 H (8-23) mg/dl Creatinine 1.2 H (0.6-1.1) mg/dl Glucose 138 H (70-105) mg/dL Calcium 8.2 L (8.6-10.4) mg/dl Total Bilirubin 1.9 H (0.0-1.0) mg/dL AST 35 (0-37) U/l ALT 54 H (0-40) U/l Alkaline Phosphatase 157 H (39-117) U/L Total Protein 5.9 (5.9-8.4) gm/dL Albumin 3.2 (3.2-5.2) gm/dL All other labs normal. Assessment and Plan (1) Lymphedema of both lower extremities Status: Chronic Priority: Low Comment: Will await resolution of medical problems. Consider compression grament for lymphedema later. (2) Spontaneous ecchymoses Status: Suspected Priority: Low Comment: ?? Drug induced. Resolving . Will monitor for now. (3) Skin rash Status: Suspected Priority: Medium Comment: ?? Drug induced. Monitor for now.
[2019-01-02] MEDS: SENNOSIDES/DOCUSATE SODIUM 1 TAB TABLET PO SCH (21:15)
[2019-01-02] MEDS: ACETAMINOPHEN 650 MG/65 ML BOTTLE IV PRN (21:15)
[2019-01-03 06:59] LABS: ALT/SGPT 56 U/l (0-40); Albumin 3.5 gm/dL (3.2-5.2); Albumin/Globulin Ratio 1.3 (1.0-2.3); Alkaline Phosphatase 161 U/L (39-117); Blood Urea Nitrogen 28 mg/dl (8-23); Gamma Glutamyl Transpeptidase 213 U/L (5-36); Uric Acid 7.9 mg/dL (2.5-8.0)
[2019-01-03] MEDS: BUMETANIDE 1 MG TABLET PO SCH (07:32)
[2019-01-03] MEDS: 0.9 % SODIUM CHLORIDE 10 ML SYRINGE IV SCH (07:32)
[2019-01-03] MEDS: OMEPRAZOLE 20 MG CAPSULE PO SCH (07:32)
[2019-01-03] MEDS ORDERED: predniSONE 10 MG TABLET PO SCH (08:00)
[2019-01-03 08:06] LABS: Mean Cell Volume 75.6 fL (80.0-100.0); Mean Corpuscular HGB Conc 29.5 g/dL (31.0-36.0); Platelet Count 190 K/mcL (140-440); RBC 4.72 M/mcL (4.00-5.20); Red Cell Distribution Width 21.7 % (11.5-14.5)
[2019-01-03 09:39] LABS: Anisocytosis 2+ (NONE SEEN); Hypochromasia 1+ (NONE SEEN); Lymphocytes % 25 % (15-49); Monocytes % (Manual) 9 % (1-12); Ovalocytes OCC (NONE SEEN); Platelet Estimate NORMAL (NORMAL); RBC Morphology ABNORM (NORMAL); Segmented Neutrophils % 66 % (38-78)
[2019-01-03] MEDS: DULoxetine 30 MG CAPSULE PO SCH (10:25)
[2019-01-03] MEDS: SPIRONOLACTONE 25 MG TABLET PO SCH (10:25)
[2019-01-03] MEDS: POTASSIUM CHLORIDE 20 MEQ TABLET PO SCH (10:26)
[2019-01-03] MEDS: DOCUSATE SODIUM 100 MG CAPSULE PO SCH (10:26)
[2019-01-03] MEDS: HEPARIN 5,000 UNIT/ML VIAL SQ SCH (10:26)
[2019-01-03] MEDS: NYSTATIN 500,000 UNITS/5 ML ORAL.SUSP SSP SCH (10:26)
[2019-01-03] MEDS: DILTIAZEM 180 MG CAP.XL.24H PO SCH (10:26)
[2019-01-03] MEDS: MULTIVIT,THER IRON,CA,FA & MIN 1 TABLET PO SCH (10:26)
--- NOTE | 2019-01-03 11:01 | Discharge Summary ---
Medical - DS: Prov Patient information: Note initiated : 01/03/19 at 10:59 am Service Date, if different from initiated Date: [] Patient: Lurdes Hernandes 68 y/o F admitted on 12/30/18 for Altered loc. Chief Complaint: [] Date of admission: 12/30/18 22:23 Discharge date: 01/03/19 Consults: 12/30/18 Consult to Physician [CONS] Stat Comment: Consulting Provider: Natanael Steel Reason For Exam: Physician to Consult 01/02/19 09:59 Consult to Physician [CONS] Routine Comment: wounds sacrum, legs Consulting Provider: Ronny Ho Reason For Exam: Physician to Consult Medical - DS: Meds - Discharge Medications Prescriptions: oxyCODONE HCL [Roxicodone] 5 mg PO Q12HP PRN #14 tab PRN Reason: Pain Level 3-6 predniSONE [Prednisone] 10 mg PO QAMCC #5 tab predniSONE [Prednisone] 5 mg PO QAMCC #5 tab Active and Home Medications: Home Medications duloxetine 60 mg capsule,delayed release 60 mg PO DAILY 12/18/16 [History Confirmed 12/31/18 Last Taken 12/30/18 07:17] Bumetanide 2 mg PO TID 12/30/18 [History Confirmed 12/31/18 Last Taken 12/30/18 16:13] Diltiazem HCl [Diltiazem 24Hr ER] 180 mg PO DAILY 12/30/18 [History Confirmed 12/31/18 Last Taken 12/30/18 07:17] Omeprazole [Prilosec] 20 mg PO ACB 12/30/18 [History Confirmed 12/31/18 Last Taken 12/30/18 07:17] Acetaminophen [Tylenol] 1,000 mg PO Q8HP PRN 12/31/18 [History Confirmed 12/31/18 Last Taken 12/30/18 13:13] Calcium Carbonate [Tums] 200 mg PO TIDP PRN 12/31/18 [History Confirmed 12/31/18 Last Taken 12/28/18 10:18] Polyethylene Glycol 3350 [Miralax] 17 gm PO DAILYP PRN 12/31/18 [History Con firmed 12/31/18 Last Taken Unknown] Potassium Chloride [Klor-Con M20] 20 meq PO TID 12/31/18 [History Confirmed 12/31/18 Last Taken 12/30/18 16:13] Spironolactone 50 mg PO DAILY 12/31/18 [History Confirmed 12/31/18 Last Taken 12/28/18 07:16] oxyCODONE HCL [Roxicodone] 5 mg PO Q12HP PRN #14 tab 01/02/19 [Rx Last Taken Unknown] predniSONE [Prednisone] 10 mg PO QAMCC #5 tab 01/02/19 [Rx Last Taken Unknown] Acetaminophen [Tylenol] 650 mg PO Q4-6HP PRN tablet 01/03/19 [Rx Last Taken Unknown] predniSONE [Prednisone] 5 mg PO QAMCC #5 tab 01/03/19 [Rx Last Taken Unknown] Medical - DS: Hosp Hospital course: Discharge diagnosis * Acute change in mental status-clinically back at baseline. Likely secondary to polypharmacy. No evidence of infectious etiology, cultures negative so far. Normal ABG/ammonia/lactate/drug screen/biochemical profile including sodium and blood glucose. Discontinued zolpidem, gabapentin, hydrocodone * Congestive heart failure-on chest imaging. Continue diuresis. On home dose Bumex * Suspect acute on chronic renal failure-clinically improved. Creatinine now down from 1.6-1.4->1.2 * History of connective tissue disorder currently on prednisone 40(started at [facility]). ESR 6, CRP 3, very unlikely a flare. Lower prednisone dose to 10->5 and subsequent taper to 2.5 * Elevated bilirubin-possible secondary to elevated right heart pressure/congestive hepatopathy(PAP 50-70 on echo) * Anasarca-clinically improving with diuresis. * Lower extremity ulcers-continue wound care and outpatient wound care follow-up * History of sleep apnea continue CPAP * Anxiety disorder-on Cymbalta stable * Hyperlipidemia continue statin * GERD continue PPI * Neuropathy-stable. DC gabapentin * History of SVT status post ablation, currently in A. fib on diltiazem * Severe deconditioning continue rehab support- Brief hospital course Ms. Hernandes is a 68 year old F with a history of sleep apnea on home CPAP/morbid obesity/raynauds phenomena who was brought in from [facility] the second time in 24 hours to the ER with symptoms of increasing somnolence, lethargy and fatigue. Patient was difficult to arouse as per staff. Over the last 24 hours patient has not been talking laying in the bed. She was evaluated [facility] on 12/30 and was discharged after 6 hours of ER stay after workup is essentially unremarkable except for creatinine 1.6. 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 During today's visit patient was difficult to arouse.Initial workup was consistent with elevated white count at 15.7, microcytosis, creatinine 1.6. ABG 7.52/41/67. Serum lactic acid/pneumonia/urine drug screen was ordered Hospitalist service was consulted for evaluation in light of acute kidney injury/elevated white count and acute mental status change. At the time of evaluation patient is very somnolent. Unable to provide a detailed history. Most of the history is obtained from review of medical records and from ER physician.. Patient has been at advanced living for the last month due to weakness and deconditioning. 12/31-patient doing a lot better this morning, sitting on chair. Did ambulate 8- 10 feet. On 2 L oxygen. Was able to provide a substantial history this morning. Denies chest pain, no telemetry events other than A. fib. Denies recent fever chills. Lower extremity compressive wraps 01/01-patient doing remarkably better. Daughter at bedside. Awake alert and per daughter patient is now her normal self at baseline. No overnight events including fever chills or mental status Ainge or confusion. Was able to ambulate with assistance. Continue rehab support and possible discharge in 24 hours. Family very appreciative of care 01/02-patient doing better. No overnight events. No concerns per staff. Wound care ongoing. White count 12.4. In lot of normal ESR at 6/CRP 3 prednisone dose lowered to 10 mg and will target eventual 2.5 baseline dose. Prednisone 40mg was recently started at [facility] less than a week ago. Creatinine improved to 1.2. Continue fluid restriction to 1500 cc a day. Echocardiogram awaited Discharge diagnosis: . - Time Spent with Patient Total time spent providing and/or coordinating discharge services: Greater than 30 minutes Medical - DS: Exam - Constitutional Vitals: Vital Signs Temp Resp BP Pulse Ox 01/03/19 07:28 97.8 F 16 122/71 93 01/03/19 04:37 98.4 F 16 93/77 98 01/03/19 00:06 136/109 94 01/02/19 23:00 100 01/02/19 20:00 95 01/02/19 19:19 99.2 F H 20 119/66 95 01/02/19 16:52 97 01/02/19 16:51 98.7 F 16 127/78 97 01/02/19 11:34 99.6 F H 16 121/68 96 Intake and Output 01/02/19 01/03/19 01/03/19 21:59 05:59 13:59 Intake Total 220 185 240 Output Total 450 500 350 Balance -230 -315 -110 Intake: IV 65 Oral 220 120 240 Output: Void Amount 450 500 350 Other: Meal Dinner Percent of Meal Consumed 50% Feeding Ability Independent Urine Appearance Clear Clear Urine Color Bright Yellow Bright Yellow Urine Odor Normal Stool Size Small Stool Color Brown Stool Consistency Formed # Voids 25 # Bowel Movements 1 Medical - DS: Data Labs on day of discharge: Labs from last 24 hours 01/03/19 01/03/19 01/03/19 07:21 03:22 03:22 WBC 14.5 H TNP RBC 4.72 TNP Hgb 10.5 L TNP Hct 35.7 L TNP MCV 75.6 L TNP MCH 22.3 L TNP MCHC 29.5 L TNP RDW 21.7 H TNP Plt Count 190 TNP MPV 10.3 TNP Total Counted 100 TNP Seg Neutrophils % 66 Band Neutrophils % Not Reportable Not Reportable Lymphocytes % 25 Monocytes % (Manual) 9 Platelet Estimate Normal TNP RBC Morphology Abnorm A TNP Polychromasia 1+ A Hypochromasia 1+ A Anisocytosis 2+ A Microcytosis 1+ A Ovalocytes Occ A Sodium 136 Potassium 5.1 Chloride 92 L Carbon Dioxide 28 Anion Gap 16.0 BUN 28 H Creatinine 1.3 H GFR Calculation 42 Glucose 137 H Uric Acid 7.9 Calcium 8.6 Phosphorus 4.1 Magnesium 2.3 Total Bilirubin 2.1 H Direct Bilirubin 1.0 H GGT 213 H AST 31 ALT 56 H Alkaline Phosphatase 161 H Lactate Dehydrogenase 760 H Total Protein 6.1 Albumin 3.5 Globulin 2.6 Albumin/Globulin Ratio 1.3 Triglycerides 89 Preliminary micro results at discharge 12/30/18 22:55 Blood Culture - Preliminary Blood 12/30/18 23:00 Blood Culture - Preliminary Blood Medical - DS: A/P - Patient/Caregiver Discharge Instructions Activity: as per physical therapy, increase activity as tolerated Diet: Low Sodium (2gm) Additional Instructions: Follow-up PCP in 5 days Follow-up wound care clinic as advised by Dr. izquierdo I recommend SNF physician to check CBC BMP UA as a posthospital follow-up in 1 week. Free water restriction to 1500 cc a day Prednisone 10 mg for 4 days followed by 5 mg for 5 days followed by 2.5 mg continue Continue aggressive bowel regimen to prevent constipation Continue fall precautions daily weights measurements and take additional 40 mg Lasix for 3 days if weight gain over 4 pounds over baseline or worsening shortness of breath and call primary care physician if inadequate response to Lasix All meals on chair sitting upright at 90 degrees to prevent aspiration Return to ER if worsening fever chills shortness of breath, diarrhea, bleeding Refrain from smoking and alcohol Continue diet and activity as advised Discussed importance of medication adherence Please review medication list with patient prior to discharge Please schedule follow-up with PCP/Providers prior to discharge and provide printouts Prescriptions: oxyCODONE HCL [Roxicodone] 5 mg PO Q12HP PRN #14 tab PRN Reason: Pain Level 3-6 predniSONE [Prednisone] 10 mg PO QAMCC #5 tab predniSONE [Prednisone] 5 mg PO QAMCC #5 tab - Follow up Plan Follow up with: Ronny Ho MD [Physician] - (follow up as new patient at wound healing clinic in 2 weeks) Disposition: Xfer SNF Prognosis: Fair Rehab Potential: Fair I certify that the patient requires SNF services: Yes Overall status at discharge: patient is progressing back to baseline Medical - DS: Qual - VTE Deep Vein Thrombosis/Pulmonary Embolism Present on Admission: No
== END 2019-01-03 14:04 | DRG 948 ==
LOC: ED 18:14 → ICU 22:23
PROVIDERS: ADMIT Internal Medicine; ATTEND Internal Medicine